=== PATIENT | female | born 1980 | race Hispanic/Latino ===

== ENCOUNTER 2024-08-01 05:03 | Emergency (ER) | payer BC ==
[~2024-08-01] VITALS: Ht 157.5 cm; Wt 90.7 kg
[2024-08-01 05:49] LABS: BASOPHILS # (AUTO) 0.09 K/uL (0.00-0.20); BASOPHILS % (AUTO) 0.9 % (0.0-5.0); EOSINOPHILS # (AUTO) 0.09 K/uL (0.00-0.70); EOSINOPHILS % (AUTO) 0.9 % (0.0-8.0); IMMATURE GRANULOCYTE ABSOLUTE 0.09 K/uL (0-1); LYMPHOCYTES # (AUTO) 3.2 K/uL (1.0-4.8); LYMPHOCYTES % (AUTO) 31.5 % (21.0-51.0); MEAN CORPUSCULAR HEMOGLOBIN 23.2 pg (27.0-33.0); MEAN CORPUSCULAR HGB CONC 30.8 g/dL (32.0-36.0); MEAN CORPUSCULAR VOLUME 75.2 fL (79-99); MONOCYTES # (AUTO) 0.5 K/uL (0.1-1.0); MONOCYTES % (AUTO) 4.6 % (3.0-13.0); NEUTROPHILS # (AUTO) 6.2 K/uL (1.8-7.7); NEUTROPHILS % (AUTO) 61.2 % (40.0-77.0); PLATELET COUNT (AUTO) 196 K/uL (130-400); RED BLOOD CELL COUNT(AUTO) 5.05 MIL/uL (4.00-5.50); RED CELL DISTRIBUTION WIDTH 16.2 % (11.0-15.5); WHITE BLOOD COUNT (AUTO) 10.1 K/uL (4.8-10.8)
[2024-08-01] MEDS: PANTOPrazole 40 MG/VIAL IVP ONE (05:52)
[2024-08-01] MEDS: ondanSETRON 4MG INJ IVP ONE (05:52)
[2024-08-01] MEDS: LACTATED RINGERS 1000ML 1,000 ML IV ONE (05:53)
[2024-08-01 06:12] LABS: ALBUMIN 3.7 g/dL (3.5-5.0); BILIRUBIN,TOTAL 0.4 mg/dL (0.2-1.0); CREATININE 0.6 mg/dL (0.5-1.0); POTASSIUM 4.1 mmol/L (3.5-5.1); TOTAL PROTEIN, SERUM 7.7 g/dL (6.0-8.3)
[2024-08-01] MEDS: mecliZINE HCL 25 MG TABLET PO ONE (07:35)
[2024-08-01] MEDS: 0.9%NACL 1000ML 1,000 ML IV ONE (07:35)
[2024-08-01 08:20] LABS: HCG,QUALITATIVE URINE NEGATIVE (NEGATIVE)
[2024-08-01 08:21] LABS: APPEARANCE,URINE CLEAR (CLEAR); BILIRUBIN,URINE NEGATIVE (NEGATIVE); COLOR,URINE LIGHT-YELLOW (YELLOW); GLUCOSE, URINE (UA) NEGATIVE (NEGATIVE); KETONES,URINE NEGATIVE (NEGATIVE); LEUKOCYTE ESTERASE ,URINE NEGATIVE Leu/uL (NEGATIVE); NITRATE,URINE NEGATIVE (NEGATIVE); OCCULT BLOOD,URINE NEGATIVE (NEGATIVE); PH,URINE 6.5 (5.0-8.0); PROTEIN,URINE NEGATIVE (NEGATIVE); UROBILINOGEN,URINE 0.2 mg/dL (0.2-1.0)
[2024-08-01 08:23] LABS: ADD UA MICROSCOPIC NO
[2024-08-01 11:56] VITALS: BP 116/77; PULSE 75; RESP 16; TEMP 97.5; O2SAT 99
== END 2024-08-01 11:57 | disposition home or self-care (01) ==
LOC: EDH 05:03
DX: R11.2 Nausea with vomiting, unspecified (principal); R19.7 Diarrhea, unspecified; R42 Dizziness and giddiness
CPT/HCPCS: 99284; 96374; 70450; 96361; 96375; 84484; 80053; 83690; 85025; 81003; 81025; 36415; 93005; J7120; J7030; J2405; J2470